=== PATIENT | female | born 2000 | race Caucasian/White ===

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

== ENCOUNTER 2021-09-18 20:16 | Emergency (ER) | payer MEDICAID, SELFPAY ==
[2021-09-18 20:22] VITALS: BP 117/74; PULSE 62; RESP 16; TEMP 36.8; O2SAT 97
--- NOTE | 2021-09-18 21:17 | W.ED.GENAD ---
Discharge Plan Disposition Patient Disposition: HOME Condition: Stable Discharge Details Chief Complaint: RespSymp Clinical Impression: URI (upper respiratory infection) Primary Care Provider: None,None ED Provider: Jed Arechiga Home Meds and New Rx's Prescriptions: No Action No Known Home Meds RF: 0 Discharge Instructions Instructions: Upper Respiratory Infection (ED) Additional Instructions: Rapid strep test negative, culture pending. Your Covid swab is also pending, I recommend quarantining until this test has resulted negative. Plenty of fluids to avoid dehydration. [id number] medications as directed for symptomatic control. Please watch for new or worsening symptoms and return to the ER for any concerns Medical Decision Making 21-year-old female, non-smoker, not vaccinated against Covid, family has similar symptoms, presents for URI-like symptoms and sore throat for the past 3 days. Denies any fever. Has not taken any medications [id number]. Clinically she appears well, nontoxic, afebrile, hemodynamically stable. Will obtain rapid strep and a Covid swab. No indication for chest Rapid strep negative, culture pending Covid pending Discussed benign work-up with patient. Standard discharge and return precautions provided. No additional questions or concerns and comfortable discharge This documentation was generated using [employer]an[employer] dictation system, please disregard any oddities of phrase or misspellings. Medical Records Medical records reviewed: Yes I reviewed the patient's medical records. Lab Data Lab results reviewed: Yes I reviewed the patient's lab results. Labs: Rapid strep negative HPI General Mode of arrival: ambulatory. Date/Time Provider Initiated Documentation: 09/18/21 20:39. Limitations to Documentation: no limitations. Information obtained by: patient. History of Present Illness 21 year old F presents to the emergency department with the chief complaint of URI and sorethroate, described as mild, with intensity rated at 2. Quality is described as aching, and is localized to the mouth (throat) and chest. Patient reports no radiation. Patient started experiencing this day(s) (3) and it has been constant. No relieving factors improve symptom(s), No exacerbating factors reported . Patient notes cough; denies chest pain, fever/chills, headaches and rash. Patient did receive the following treatments prior to arrival, none Related Data Home Medications Medication Instructions Recorded Confirmed Unknown [No Known Home Meds] 05/12/19 09/18/21 Allergies Allergy/AdvReac Type Severity Reaction Status Date / Time No Known Allergies Allergy Unverified 09/18/21 20:35 General Stated Complaint: RespSymp DL: 3 Review of Systems Constitutional Constitutional: Denies fever(s) and Denies headache(s) ENT Ears, Nose, Mouth, and Throat: Denies headache(s) and Reports sore throat Cardiovascular Cardiovascular: Denies chest pain and Denies dyspnea Respiratory Respiratory: Reports cough and Denies dyspnea Gastrointestinal Gastrointestinal: Denies abdominal pain, Denies nausea and Denies vomiting Genitourinary Genitourinary: Denies dysuria Musculoskeletal Musculoskeletal: Denies back pain Integumentary/Breasts Skin/Breast: Denies rash Neurologic Neurologic: Denies headache(s) [facility] Active Problem List (Updated 09/18/21 @ 21:23 by CHAVA Schumacher) URI (upper respiratory infection) (Acute) Contraception (Acute 07/29/15) Family History Other Colon cancer Social History Smoking/Tobacco Use Status: Never Smoking risk assessment performed?: Yes Alcohol Intake: never Drug use: Never Substance use type: does not use Do you feel safe at home: Yes Do you feel safe in your relationship?: Yes Exam Const General: cooperative, healthy appearing, comfortable and no acute distress Orientation: alert, awake and oriented x3 HENMT Head: normal to inspection, normocephalic and atraumatic Ears: external ears normal, TM's normal bilaterally and EAC's normal Face and sinus: normal facial exam Mouth: oral mucosae normal and moist mucous membranes Throat: posterior oropharynx normal Eyes General: appearance normal, both eyes and all related structures Conjunctivae: conjunctivae normal Neck Neck: normal visual inspection, full ROM, no lymphadenopathy, no meningeal signs, trachea midline, supple and nontender Resp Effort & Inspection: normal respiratory effort and able to speak in complete sentences Auscultation: clear to auscultation bilaterally Cardio Rate: regular rate Rhythm: regular rhythm Skin General skin exam: no rashes or lesions noted Neuro General: patient alert, patient awake, moves all extremities and no focal motor deficits Sensory Exam: no sensory deficits noted Psych Appearance: grossly normal Mental Status: mental status grossly normal Course Vital Signs Vital signs: Vital Signs Temperature 36.8 C 09/18/21 20:22 Pulse 62 09/18/21 20:22 Respiratory Rate 16 09/18/21 20:22 Blood Pressure 117/74 09/18/21 20:22 Pulse Oximetry 97 09/18/21 20:22 Temperature 36.8 C 09/18/21 20:22 Temperature Source Oral 09/18/21 20:22 Pulse 62 09/18/21 20:22 Respiratory Rate 16 09/18/21 20:22 Respiratory Effort Non-Labored 09/18/21 20:38 Respiratory Depth Normal 09/18/21 20:38 Blood Pressure 117/74 09/18/21 20:22 Blood Pressure Position Sitting 09/18/21 20:22 Pulse Oximetry 97 09/18/21 20:22 Oxygen Delivery Method Room Air 09/18/21 20:22 Oxygen Flow Rate 0 09/18/21 20:22 Pain Level 7 09/18/21 20:22 Lab/Test Results Lab/Test Results: POC- Test(urine) Negative POC Strep Test-SUPA(Rapid) Start: 09/18/21 20:34 Freq: Status: Complete Protocol: Document 09/18/21 20:57 CP (Rec: 09/18/21 20:57 CP [id number]) Strep test-SUPA(Rapid)-POC POC-Strep test-SUPA (Rapid) Negative POC-Strep test-SUPA (Rapid) Negative
[2021-09-18 21:38] LABS: Source Nasal/Nares
[2021-09-18 23:10] LABS: COVID-19 PCR Negative (Negative)
== END 2021-09-18 21:40 | disposition home or self-care (01) ==
PROVIDERS: Emergency Provider Physician Assistant
DX: J06.9 Acute upper respiratory infection, unspecified (principal); J02.9 Acute pharyngitis, unspecified
CPT/HCPCS: 81025; 87635; 87880; 99282; 87081; 99283

== ENCOUNTER 2022-12-15 16:11 | Outpatient (CLI) | payer MEDICAID, SELFPAY ==
[2022-12-15 16:17] LABS: HCG Quant, Pregnancy 27 mIU/mL (1-3)
== END 2022-12-15 16:12 | disposition home or self-care (01) ==
LOC: LBO 16:12
PROVIDERS: Visit Provider Obstetrics & Gynecology
DX: O26.851 Spotting complicating pregnancy, first trimester (principal); Z3A.00 Weeks of gestation of pregnancy not specified
CPT/HCPCS: 36415; 84702

== ENCOUNTER 2022-12-17 11:57 | Outpatient (CLI) | payer MEDICAID, SELFPAY ==
[2022-12-17 11:28] LABS: HCG Quant, Pregnancy 11 mIU/mL (1-3)
--- OUTSIDE RECORDS SUMMARY | 2022-12-17 11:59 | XMS_ITS ---
Author Name Timothy Vinson Address [address], [place] [id number] Organization [facility] Address [address], [place] [id number] Care Team Providers Care Piping Manager Name Role Phone Karel, Timothy Unavailable [phone] PROBLEMS Type Condition ICD9-CM Code [id number] Code Onset Dates Condition Status SNOMED Code Problem Encounter for supervision of normal first in first trimester Z34.01 Active [id number] Problem Encounter for immunization Z23 Active [id number] ALLERGIES No Known Allergies ENCOUNTERS Encounter Location Date Diagnosis [address] [id number] May, [address] [id number] May, Contraceptive use education Z30.09 and care and examination Z39.[address] [id number] Dec, Encounter for supervision of normal first in third trimester Z34.03 and 38 weeks gestation of Z3A.[address] [id number] Dec, 2019 Encounter for supervision of normal first in third trimester Z34.03 ; 37 weeks gestation of Z3A.37 and Encounter for screening Z36.[address] [id number] 07 Dec, 2019 Encounter for supervision of normal first in third trimester Z34.[address] [id number] Nov, Encounter for supervision of normal first in third trimester Z34.[address] [id number] Nov, Encounter for supervision of normal first in third trimester Z34.03 and Encounter for immunization Z23 [address] [id number] Nov, Encounter for supervision of normal first in third trimester Z34.[address] [id number] Oct, [address] [id number] Oct, Encounter for supervision of normal first in third trimester Z34.[address] [id number] Oct, Encounter for supervision of normal first in third trimester Z34.[address] [id number] Sep, Encounter for supervision of normal first in second trimester Z34.02 and Encounter for screening examination for infectious disease Z11.[address] [id number] Aug, [address] [id number] Aug, Encounter for supervision of normal first in second trimester Z34.02 and Encounter for immunization Z23 [address] [id number] Jul, [address] [id number] Jul, Encounter for supervision of normal first in second trimester Z34.[address] [id number] Jun, Encounter for supervision of normal first in first trimester Z34.[address] [id number] May, Encounter for supervision of normal first in first trimester Z34.01 IMMUNIZATIONS Vaccine Route Administration Date Status Tdap - Adult IM Intramuscular Nov 24, 2019 Administere d RE - Flu VACC 6 MONTHS > IM Intramuscular Aug 17 9 Administered SOCIAL HISTORY Never Assessed REASON FOR REFERRAL FUNCTIONAL STATUS PLAN OF CARE Activity Details VITAL SIGNS Height 69.25 in 2020-05-13 Height 69.25 in 2019-07-10 Height 69.25 in 2019-05-15 Weight 133.2 lbs 2020-05-13 Weight 167.8 lbs 2019-12-22 Weight 165.2 lbs 2019-12-15 Weight 164.8 lbs 2019-12-08 Weight 160 lbs 2019-12-01 Weight 161 lbs 2019-11-24 Weight 161.2 lbs 2019-11-10 Weight 164.8 lbs 2019-10-27 Weight 165.0 lbs 2019-10-13 Weight 161.0 lbs 2019-09-14 Weight 152.6 lbs 2019-08-17 Weight 144.6 lbs 2019-07-10 Weight 146.6 lbs 2019-06-12 Weight 144.6 lbs 2019-05-15 BMI 19.53 kg/m2 2020-05-13 BMI 21.2 kg/m2 2019-07-10 BMI 21.2 kg/m2 2019-05-15 Blood pressure systolic 106 mm Hg Blood pressure diastolic 62 mm Hg 2020-05 MEDICATIONS Medication Instructions Dosage Frequency Start Date End Date Duration Status 28-0.8 MG Orally Once a day 1 tablet 24h Not-Takin g Norgestimate-E th Estradiol 0.25-35 MG-MCG Orally Once a day 1 tablet 24h May, 28 day(s) Active Adult Gummy/DHA/FA 0.4-25 MG Not-Takin g PROCEDURES Procedure Date Ordered Result Body Site SUBSEQUENT CARE Oct 27, 2019 SUBSEQUENT CARE January 01, 2020 SUBSEQUENT CARE Sep 14, 2019 SUBSEQUENT CARE Jun 12, 2019 SUBSEQUENT CARE Dec 15, 2019 SUBSEQUENT CARE Dec 08, 2019 IMMUNIZATION ADMINISTRATION Nov 24, 2019 SUBSEQUENT CARE Nov 10, 2019 INITIAL CARE VISIT May 15, 2019 SUBSEQUENT CARE Oct 13, 2019 SUBSEQUENT CARE Aug 17, 2019 SUBSEQUENT CARE Dec 22, 2019 SUBSEQUENT CARE Dec 01, 2019 SUBSEQUENT CARE Jul 10, 2019 SUBSEQUENT CARE Nov 24, 2019 IMMUNIZATION ADMINISTRATION Aug 17, 2019 RE - Flu VACC 6 MONTHS > Aug 17, 2019 URINE TEST May 13, 2020 Tdap - Adult Nov 24, 2019 RESULTS Name Result Date Reference Range Test (Rapid) Urine 2020-05-13 Result negative Control Passed URINE DIP ([facility]) 2019-12-22 Color Clarity Glucose negative Bilirubin Ketones Specific [place] Blood PH Protein negative Uro Nitrates Leukocytes URINE DIP ([facility]) 2019-12-15 Color Clarity Glucose negative Bilirubin Ketones Specific [place] Blood PH Protein trace Uro Nitrates Leukocytes GROUP-B STREP SCREEN - RAPID PCR 2019-12-15 Group B Strep by PCR NEGATIVE NEGATIV E URINE DIP ([facility]) 2019-12-08 Color Clarity Glucose negative Bilirubin Ketones Specific [place] Blood PH Protein negative Uro Nitrates Leukocytes URINE DIP ([facility]) 2019-12-01 Color Clarity Glucose negative Bilirubin Ketones Specific [place] Blood PH Protein negative Uro Nitrates Leukocytes URINE DIP ([facility]) Color Clarity Glucose negative Bilirubin Ketones Specific [place] Blood PH Protein negative Uro Nitrates Leukocytes URINE DIP ([facility]) 2019-10-27 Color Clarity Glucose negative Bilirubin Ketones Specific [place] Blood PH Protein negative Uro Nitrates Leukocytes CBC, WITH AUTO DIFF 2019-10-13 WBC 9.7 4.8-10.8 RBC 3.61 4.20-5.40 HGB 11.2 12.0-16.0 HCT 32.7 37.0-47.0 MCV 90.6 81.0-99.0 MCH 31.0 27.0-31.0 MCHC 34.3 32.0-37.0 RDW-CV 13.1 11.5-14.5 PLT 243 130-400 MPV 10.4 7.4-10.4 NE% 71.9 42.2-75.2 LY% 20.3 20.5-51.1 MO% 6.3 1.7-9.3 EO% 0.8 0.9-2.9 BA% 0.4 0.0-0.8 NE# 7.0 1.4-6.5 LY# 2.0 1.2-3.4 MO# 0.6 0.1-0.6 EO# 0.1 0.0-0.2 BA# 0.0 0.0-0.2 URINE DIP ([facility]) 2019-10-13 Color Clarity Glucose negative Bilirubin Ketones Specific [place] Blood PH Protein negative Uro Nitrates Leukocytes GLUCOSE DIANA GESTATIONAL(50GM) 2019-10-13 GLUCOSE - 1 HR POST 90 <=135 CHLAMYDIA/GC by PCR URINE 2019-09-14 C.trach by PCR NOT DETECTED NOT DETECTED N. gonorrhoeae PCR NOT DETECTED NOT DETEC DUY USR The patient should n ot have urinated for at least 1 hour prior to specimen collection. Female patients should not cleanse the labial area prior to collecting the specimen. Male patients should n URINE DIP ([facility]) 2019-09-14 Color Clarity Glucose negative Bilirubin Ketones Specific [place] Blood PH Protein negative Uro Nitrates Leukocytes CULTURE STREP GR A 2019-08-25 STREP SCREEN GR A with REFLE X CULTURE 2019-08-25 STREP A Ag NEGATIVE NEGATIVE URINE DIP ([facility]) 2019-08-17 Color Clarity Glucose negative Bilirubin Ketones Specific [place] Blood PH Protein negative Uro Nitrates Leukocytes CULTURE URINE 2019-08-17 US OB FOLLOW UP 2019-09-14 URINE DIP ([facility]) 2019-07-10 Color Clarity Glucose negative Bilirubin Ketones Specific [place] Blood PH Protein negative Uro Nitrates Leukocytes US OB GREATER THAN 14 WEEKS 2019-08-17 URINE DIP ([facility]) 2019-05-15 Color Clarity Glucose negative Bilirubin Ketones Specific [place] Blood PH Protein negative Uro Nitrates Leukocytes CBC, WITH AUTO DIFF 2019-05-15 WBC 11.7 4.8-10.8 RBC 3.83 4.20-5.40 HGB 11.8 12.0-16.0 HCT 34.1 37.0-47.0 MCV 89.0 81.0-99.0 MCH 30.8 27.0-31.0 MCHC 34.6 32.0-37.0 RDW-CV 13.2 11.5-14.5 PLT 255 130-400 MPV 10.7 7.4-10.4 NE% 69.0 42.2-75.2 LY% 22.0 20.5-51.1 EO% 0.6 0.9-2.9 BA% 0.6 0.0-0.8 NE# 8.1 1.4-6.5 LY# 2.6 1.2-3.4 MO# 0.9 0.1-0.6 EO# 0.1 0.0-0.2 BA# 0.1 0.0-0.2 HEPATITIS B SURFACE ANTIGEN, 2019-05-15 HEP B SURFACE AG NON-REACTIVE NON-REACTIV E RUBELLA IGG ANTIBODY 2019-05-15 RUBELLA 316.4 >=10.0 RUB HEAD REFERENCE RANGE: (IU /mL) <5.0 : NON-IMMUNE 5.0 - 9.9 : [place]MI[place] ZONE >= 10.0 : IMMUNE TYPE AND SCREEN, 2019-05-15 ABORh A POSITIVE ANTIBODY SCREEN NEGATIVE NEGATIVE TS COMM Pre-op Type & Screen specimens are valid for 7 days. If the patient has been transfused or been within the past 3 months, the specimen is only valid for 3 days. 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 up DELIVERED, OB follow up, *OB follow up, *OB follow up, [facility]: Ob f/u 1st preg/3rd tri, *OB follow up, [facility]: Ob f/u 1st preg/3rd tri, OB follow up, OB follow up, OB follow up, OB follow up, Pt notes painful swelling in both feet, Ptnotes back pain, OB follow up, OB EST 2 WK F/UP, Iron supplement question, OB follow up ob, OB follo w up , OB follow 4 wks, U/S & Appointment, OB follow up, FYI only, OB follow up- need urine culture, OB follow 4 wks, [employer] LMP 03/02/2019 Insurance Providers Health Insurance Type Health Plan Insurance Address Health Plan Insurance Phone Health Plan Insurance Name Health Plan Coverage Dates Member ID Patient Relationship to Subscriber Patient Address Patient Phone Patient Name Patient Date of Subscriber ID Subscriber Name Subscriber Date of Group No [place] [address] [place] [id number] [employer] self [place] [id number] [place] MEDICA[place] [address] [facility] [address] [place] MEDICA[place] self Justice Gay [id number] [place] [address] [facility] [id number] [place] self Justice Gay [id number]
== END 2022-12-17 11:58 | disposition home or self-care (01) ==
LOC: LBO 11:57
PROVIDERS: Visit Provider Obstetrics & Gynecology
DX: O26.851 Spotting complicating pregnancy, first trimester (principal); Z3A.01 Less than 8 weeks gestation of pregnancy
CPT/HCPCS: 36415; 84702

== ENCOUNTER 2023-01-27 12:33 | Outpatient (REF) | payer MEDICAID, SELFPAY ==
--- NOTE | 2023-01-27 11:45 | PAPFT_PTH ---
PATIENT: Chinedu Huang LOC: [facility] U#:[id number] AGE/SX: 22/F ROOM: RE01/27/[address]: Daniel Brewer : 2000 BED: DIS: 01/27/2023 SPEC #: [id number] RECD: 01/27/23 17:36 STATUS: JERAMY REShaw #: [id number] MADELYN: 01/27/23 11:[address]: Daniel Brewer DEPT: [facility] Cytology RECD BY: Saniya Kwok Tissues: 1 - CX/ENDOCX FOR PAP SMEARS Procedures: PAP THIN PREP/UVM Screening Comments: [id number]
[2023-01-29 12:18] LABS: Chlamydia Result Negative (Negative); GC Result Negative (Negative)
== END 2023-01-27 12:34 | disposition home or self-care (01) ==
LOC: NCHCN 12:33
PROVIDERS: Visit Provider Physician Assistant Medical
DX: Z11.3 Encounter for screening for infections with a predominantly sexual mode of transmission (principal); Z12.4 Encounter for screening for malignant neoplasm of cervix
CPT/HCPCS: 87491; 87591; 88142

== ENCOUNTER 2025-09-04 10:19 | Emergency (ER) | payer MEDICAID, SELFPAY ==
[2025-09-04 10:23] VITALS: BP 122/86; PULSE 76; RESP 18; TEMP 36.4; O2SAT 98
[2025-09-04 10:33] VITALS: BP 122/86; PULSE 76; RESP 18; TEMP 36.4; O2SAT 98
[2025-09-04 11:04] LABS: Abs Immature Grans 0.04 10^3/uL (0.0-0.06); HCT 34.9 % (36.0-46.0); HGB 11.5 g/dL (11.2-15.7); Immature Grans % 0.5 %; MCH 28.0 pg (27.0-33.0); MCHC 33.0 % (32.0-36.0); MCV 85 fL (80-95); MPV 10.5 fL (8.0-11.0); Platelet Count 221 10^3/uL (130-400); RBC 4.10 10^6/uL (3.93-5.22); RDW 18.8 % (11.7-14.6); RDW-SD 58.0 fL; WBC 8.88 10^3/uL (4.4-10.8)
[2025-09-04] MEDS: Ondansetron 4 MG/2 ML VIAL IVP (11:11)
[2025-09-04] MEDS: Normal Saline 1,000 ML 1000 ML IV (11:11)
[2025-09-04 11:19] LABS: ALT 19 U/L (14-59); AST 15 U/L (15-37); Albumin 2.9 g/dL (3.4-5.0); Alkaline Phosphatase 266 U/L (46-116); Anion Gap 10.5 mmol/L (3-11); BUN 4 mg/dL (7-18); Bilirubin, Total 0.3 mg/dL (0.2-1.0); CO2 22.5 mmol/L (21.0-32.0); Calcium 8.9 mg/dL (8.5-10.1); Chloride 105 mmol/L (98-107); Glucose 74 mg/dL (74-106); Magnesium 1.8 mg/dL (1.8-2.4); Potassium 3.9 mmol/L (3.5-5.1); Sodium 138 mmol/L (136-145); Total Protein 7.3 g/dL (6.4-8.2)
--- NOTE | 2025-09-04 12:17 | W.ED.GENAD ---
Discharge Plan Disposition Patient Disposition: Home Condition: Stable Discharge Details Clinical Impression: Nausea vomiting and diarrhea, Third trimester Primary Care Provider: None,None ED Provider: Saniya Barrow Home Meds and New Rx's Prescriptions: New ondansetron 4 mg tablet,disintegrating 4 mg PO TID PRN3 Days Qty: 10 0RF Continued Classic 28 mg iron- 800 mcg tablet 1 tab PO DAILY Qty: 90 2RF ferrous gluconate 324 mg (38 mg iron) tablet 324 mg PO DAILY Patient Comments: TAKE ONE TABLET BY MOUTH EVERY DAY Discharge Instructions Instructions: Nausea and Vomiting, Adult ED Additional Instructions: Please take Zofran for nausea and vomiting, make sure you are drinking at least 64 ounces of water daily You are to go directly up to OB upon departure for monitoring You may incorporate a bland diet once you are able to tolerate clear liquids such as Jell-O, broth, Gatorade, popsicles [place] diet could consist of toast, applesauce, bananas Please be reevaluated with worsening abdominal pain, fever, vaginal discharge, or should any new concerns arise Stand Alone Forms: Portal Information Discharge Data Discharge Date/Time-TO BE ENTERED AT DEPARTURE: 09/04/25 12:52 HPI General Date/Time Provider Initiated Documentation: 09/04/25 10:32. HPI Narrative: This 25-year-old female presents with a report of nausea, vomiting, diarrhea since last evening. Family member sick with similar symptoms. She is 36 weeks and followed by [facility] obstetric[facility]. She has some cramping that corresponds with nausea and vomiting in her epigastrium but denies any lower abdominal tenderness vaginal bleeding or discharge. She is and delivered around 37 weeks with these pregnancies. She states she has had an uneventful so far. She states she was able to hold down some fluid and a small amount of food this morning but still feels quite nauseous. Related Data Home Medications Medication Instructions Recorded Confirmed vits no.126-ferrous fum 1 tab PO DAILY #90 tabs 01/24/25 09/04/25 28 mg iron-folic acid 800 mcg tablet (Classic ) ferrous gluconate 324 mg (38 mg 324 mg PO DAILY 09/04/25 09/04/25 iron) tablet ondansetron 4 mg disintegrating 4 mg PO TID PRN 3 days #10 tabs 09/04/25 tablet Previous Rx's Medication Instructions Recorded vits no.126-ferrous fum 1 tab PO DAILY #90 tabs 01/24/25 28 mg iron-folic acid 800 mcg tablet (Classic ) ondansetron 4 mg disintegrating 4 mg PO TID PRN 3 days #10 tabs 09/04/25 tablet Allergies Allergy/AdvReac Type Severity Reaction Status Date / Time amoxicillin Allergy Skin Rash Unverified 09/04/25 10:33 Penicillins Allergy Skin Rash Unverified 09/04/25 10:33 General Stated Complaint: Nausea/Vomit/Diar DL: 3 Exam Narrative Exam Narrative: Alert, oriented, pale appearing 25-year-old female with a gravid uterus, heart rate 155, nontender abdomen without visible sign of trauma, no CVA tenderness mostly because membranes answering questions appropriately cardiac rate rhythm regular no respiratory distress no significant peripheral edema, external exam without obvious evidence of acute labor, no vaginal discharge Course Vital Signs Vital signs: Vital Signs Temperature 36.4 C 09/04/25 10:23 Pulse 76 09/04/25 10:23 Respiratory Rate 18 09/04/25 10:23 Blood Pressure 122/86 09/04/25 10:23 Pulse Oximetry 98 09/04/25 10:23 Temperature 36.4 C 09/04/25 10:33 Temperature Source Oral 09/04/25 10:33 Pulse 76 09/04/25 10:33 Respiratory Rate 18 09/04/25 10:33 Blood Pressure 122/86 09/04/25 10:33 Blood Pressure Position Sitting 09/04/25 10:33 Pulse Oximetry 98 09/04/25 10:33 Oxygen Delivery Method Room Air 09/04/25 10:33 Oxygen Flow Rate 0 09/04/25 10:23 Lab/Test Results Lab/Test Results: Laboratory Tests Range/Units 09/04/25 10:55 WBC (4.4-10.8) 10^3/uL 8.88 RBC (3.93-5.22) 10^6/uL 4.10 Hgb (11.2-15.7) g/dL 11.5 Hct (36.0-46.0) % 34.9 L MCV (80-95) fL 85 MCH (27.0-33.0) pg 28.0 MCHC (32.0-36.0) % 33.0 RDW (11.7-14.6) % 18.8 H Plt Count (130-400) 10^3/uL 221 MPV (8.0-11.0) fL 10.5 Immature Gran % % 0.5 Neutrophils % % 70.5 Lymphocytes % % 19.8 Monocytes % % 6.9 Eosinophils % % 1.7 Basophils % % 0.6 Nucleated RBC % (0.0-0.3) % 0.0 Absolute Neutrophils (1.2-6.7) 10^3/uL 6.27 Absolute Lymphocytes (1.2-3.4) 10^3/uL 1.76 Absolute Monocytes (0.1-0.8) 10^3/uL 0.61 Absolute Eosinophils (0.0-0.7) 10^3/uL 0.15 Absolute Basophils (0.0-0.2) 10^3/uL 0.05 Sodium (136-145) mmol/L 138 Potassium (3.5-5.1) mmol/L 3.9 Chloride (98-107) mmol/L 105 Carbon Dioxide (21.0-32.0) mmol/L 22.5 Anion Gap (3-11) mmol/L 10.5 BUN (7-18) mg/dL 4 L Creatinine (0.55-1.02) mg/dL 0.5 L Est GFR (CKD-EPI 2020) (mL/min/1.73m2) 133.40 Glucose (74-106) mg/dL 74 Calcium (8.5-10.1) mg/dL 8.9 Magnesium (1.8-2.4) mg/dL 1.8 Total Bilirubin (0.2-1.0) mg/dL 0.3 AST (15-37) U/L 15 ALT (14-59) U/L 19 Alkaline Phosphatase (46-116) U/L 266 H Total Protein (6.4-8.2) g/dL 7.3 Albumin (3.4-5.0) g/dL 2.9 L Medical Decision Making Results: CBC CMP within normal limits, urinalysis pending Assessment and plan: Suspect patient's discomfort is secondary to acute gastroenteritis with nausea vomiting and diarrhea with similar sick contacts at home. heart rate 155 and patient's vitals are stable. I did order 1 L of fluid antiemetics patient is feeling improvement of symptoms. She is able to tolerate p.o. I did recommend 1 additional liter of NS. Dr. Mcdaniel will see patient upon departure for monitoring prior to her discharge from this facility. Patient is declining a second liter as she needs to pick her kids up by 330. I will write for antiemetics for home. On reassessment, pt is declining [facility] assessment of fetus. urinalysis initially contaminated and this we recollected without evidence of infection. Patient alert, oriented, decisional capacity she understands that she is leaving against her medical recommendation and she has not been fully assessed from standpoint.i did provide zofran for home and urged reassessment at her earliest ability [facility] All Active Problems (Updated 09/04/25 @ 12:11 by CHAVA Duncan) Third trimester (Acute) Nausea vomiting and diarrhea (Acute) URI (upper respiratory infection) (Acute) Medical History (Updated 09/04/25 @ 12:11 by CHAVA Duncan) Complete miscarriage Dec 2022 Family History Other Colon cancer Social History Smoking/Tobacco Use Status: Never Smoking risk assessment performed?: Yes Alcohol Intake: never Drug use: Never Substance use type: does not use Do you feel safe at home: Yes Do you feel safe in your relationship?: Yes Female Reproductive History Menstrual control method: none History History 4 Para 2 Hx # Term Pregnancies 2 Multiple births Hx # Pregnancies Ectopic pregnancies AB induced Hx Number of Living Children AB spontaneous 1 Past Pregnancies Del. Date GA/Weeks # Preg Succ Route Wgt Sex Labor Lgth Anesthesia Location Prov [facility] 12/31/19 40 No Yes vaginal 3628.739 g Male [place] 12/18/22 No 10/12/23 39 No Yes vaginal 3345.244 g Male [facility] Delivery Date: 12/31/19 Last Updated by: Taniya Corbett Delivery Date: 12/18/22 Last Updated by: Namrata Smith NP SAB Delivery Date: 10/12/23 Last Updated by: Namrata Barnard
[2025-09-04 12:18] LABS: Glucose Negative (Negative)
[2025-09-04 12:23] LABS: RBC 0-2 HPF (0-2)
[2025-09-04 12:59] LABS: Glucose Negative (Negative)
[2025-09-04 13:07] LABS: C & S Indicated? No; RBC 0-2 HPF (0-2)
== END 2025-09-04 12:52 | disposition home or self-care (01) ==
PROVIDERS: Emergency Provider Physician Assistant
DX: R11.2 Nausea with vomiting, unspecified (principal); R19.7 Diarrhea, unspecified; Z3A.36 36 weeks gestation of pregnancy
CPT/HCPCS: 36415; 80053; 96361; 96374; 99284; 81003; 81015; 83735; 85025; 99283; J2405